=== PATIENT | male | born 1935 | race Caucasian/White ===

== ENCOUNTER 2023-04-20 20:24 | Inpatient (IN) ==
[2023-04-20] MEDS ORDERED: cefTRIAXone 1 gm/50 mL D5W 1 GM/50 ML BAG IV ONE (21:55)
[2023-04-21 00:17] LABS: ABS Basophils 0.1 10^3/uL (0.0-0.1); ABS Eosinophils 0.2 10^3/uL (0.0-0.5); ABS Lymphocytes 0.6 10^3/uL (1.0-4.8); ABS Monocytes 0.6 10^3/uL (0.0-1.1); ABS Neutrophils 8.5 10^3/uL (1.5-7.6); Eosinophil % 1.8 %; Hematocrit 27.7 % (38-53); Hemoglobin 9.2 g/dL (13.2-16.3); Lymphocyte % 5.9 %; Mean Corpuscular Hemoglobin 29.3 pg (27-33); Mean Corpuscular Hgb Conc 33.3 g/dL (31-36); Mean Corpuscular Volume 87.8 fL (80-97); Mean Platelet Volume 7.4 fL (7.5-11.2); Platelet Count 160 10^3/uL (150-450); Red Blood Count 3.16 10^6/uL (4.06-5.63); Red Cell Distribution Width 16.5 % (12-17)
[2023-04-21 00:18] LABS: Urine Appearance Cloudy; Urine Specific Gravity 1.017 (1.002-1.030)
[2023-04-21 00:19] LABS: Urine Color Red
[2023-04-21 00:33] LABS: Urine Bacteria Absent (Absent); Urine Red Blood Cell Absent (Absent); Urine White Blood Cell Absent (Absent)
[2023-04-21 00:34] LABS: Albumin 3.2 g/dL (3.2-5.2); Albumin/Globulin Ratio 1.3 (1-3); Calcium 8.7 mg/dL (8.6-10.3); Creatinine, Serum 1.7 mg/dL (0.67-1.17); Globulin 2.4 g/dL (2-4); Potassium 4.2 mmol/L (3.5-5.0); Total Bilirubin 0.8 mg/dL (0.2-1.0); Total Protein 5.6 g/dL (6.4-8.9); eGFR CKD-EPI 38.8 (>60)
[2023-04-21] MEDS ORDERED: hydrALAZINE 20 mg/ml 1 ML Vial IV IV SLOW PU PRN (04:09)
[2023-04-21] MEDS ORDERED: hydrALAZINE 20 mg/ml 1 ML Vial IV IV SLOW PU ONE (04:09)
[2023-04-21] MEDS ORDERED: Nitro 2% OINT (Nitroglycerin) 1 INCH/PAK TOPICAL ONE (04:10)
[2023-04-21] MEDS ORDERED: oxyCODONE/Acetamin 5/325 mg TAB PO ONE (04:44)
[2023-04-21] MEDS ORDERED: Lactated Ringers 1000 ml BAG 1,000 ML IV SCH (05:00)
[2023-04-21] MEDS ORDERED: Nitro 2% OINT (Nitroglycerin) 1 INCH/PAK ONE (05:55)
[2023-04-21] MEDS ORDERED: fentaNYL 100 mcg/2 ml 50 MCG/ML VIAL ONE (10:52)
[2023-04-21] MEDS ORDERED: Propofol 10 MG/ML 20 ML BTL ONE (10:52)
[2023-04-21] MEDS ORDERED: Rocuronium 50 mg VIAL 10 mg/ml 5 ml VIAL (50 mg) ONE (10:52)
[2023-04-21] MEDS ORDERED: Lidocaine 2% PF 5 ML VIAL ONE (10:52)
[2023-04-21] MEDS ORDERED: Dexamethasone IV 4 MG/ML VIAL 1 ml VIAL ONE (10:52)
[2023-04-21] MEDS ORDERED: Ondansetron 4 mg VIAL 2 MG/ML 2 ml VIAL ONE (10:52)
[2023-04-21] MEDS ORDERED: Glycopyrrolate IV 0.2 MG/ML 1 ML VIAL ONE (12:39)
[2023-04-21] MEDS ORDERED: KETAMINE HCL 10 MG/ML 20 ml VIAL (200 MG) ONE (12:46)
[2023-04-21] MEDS ORDERED: Furosemide 20 mg/2 ml IV VIAL ONE (13:28)
[2023-04-21] MEDS ORDERED: fentaNYL 100 mcg/2 ml 50 MCG/ML VIAL IV PRN (13:35)
[2023-04-21] MEDS ORDERED: Naloxone 0.4 mg VIAL 0.4 mg/ml 1 ml VIAL IV PRN (13:35)
[2023-04-21 16:06] LABS: Hematocrit 21.8 % (38-53); Hemoglobin 7.3 g/dL (13.2-16.3)
[2023-04-21] MEDS ORDERED: Lidocaine 2% JELLY 6 ML Topical TOPICAL PRN (20:03)
[2023-04-21] MEDS ORDERED: cefTRIAXone 1 gm/50 mL D5W 1 GM/50 ML BAG IV SCH (22:00)
[2023-04-21] MEDS: Lactated Ringers 1000 ml BAG 1,000 ML IV SCH (22:49)
[2023-04-21] MEDS: cefTRIAXone 1 gm/50 mL D5W 1 GM/50 ML BAG IV SCH (22:51)
[2023-04-21 23:46] LABS: Hematocrit 28.7 % (38-53); Hemoglobin 9.5 g/dL (13.2-16.3)
[2023-04-22] MEDS: Lactated Ringers 1000 ml BAG 1,000 ML IV SCH (05:30)
[2023-04-22 05:53] LABS: ABS Lymphocytes 0.4 10^3/uL (1.0-4.8); ABS Monocytes 0.4 10^3/uL (0.0-1.1); ABS Neutrophils 8.5 10^3/uL (1.5-7.6); Hematocrit 27.5 % (38-53); Hemoglobin 9.2 g/dL (13.2-16.3); Lymphocyte % 3.9 %; Mean Corpuscular Hemoglobin 29.2 pg (27-33); Mean Corpuscular Hgb Conc 33.7 g/dL (31-36); Mean Corpuscular Volume 86.6 fL (80-97); Mean Platelet Volume 7.4 fL (7.5-11.2); Platelet Count 153 10^3/uL (150-450); Red Blood Count 3.17 10^6/uL (4.06-5.63); Red Cell Distribution Width 16.2 % (12-17); White Blood Count 9.2 10^3/uL (3.6-10.2)
[2023-04-22 06:09] LABS: Calcium 8.4 mg/dL (8.6-10.3); Creatinine, Serum 1.47 mg/dL (0.67-1.17); Magnesium 1.9 mg/dL (1.9-2.7); Potassium 4.1 mmol/L (3.5-5.0); eGFR CKD-EPI 46.2 (>60)
[2023-04-22 12:33] LABS: Hematocrit 25.4 % (38-53); Hemoglobin 8.6 g/dL (13.2-16.3)
[2023-04-22 18:56] LABS: % Iron Saturation 9 % (15-55); .Transferrin 160 mg/dL (203-362); Iron < 20 ug/dL (50-212); Total Iron Binding Capacity 224 mcg/dL (250-450); Unsaturated Iron Binding 204 ug/dL
[2023-04-22 19:16] LABS: Ferritin 110.5 ng/mL (24-336)
[2023-04-22 19:20] LABS: Folate > 20.00 ng/mL (5.90-24.80)
[2023-04-22 19:21] LABS: Vitamin B12 772 pg/mL (180-914)
[2023-04-22] MEDS: cefTRIAXone 1 gm/50 mL D5W 1 GM/50 ML BAG IV SCH (21:27)
[2023-04-23 07:12] LABS: ABS Eosinophils 0.2 10^3/uL (0.0-0.5); ABS Lymphocytes 0.6 10^3/uL (1.0-4.8); ABS Monocytes 0.8 10^3/uL (0.0-1.1); ABS Neutrophils 5.6 10^3/uL (1.5-7.6); ABS Nucleated RBC 0.01 10^3/ul; Eosinophil % 2.7 %; Hemoglobin 8.3 g/dL (13.2-16.3); Lymphocyte % 8.4 %; Mean Corpuscular Hemoglobin 29.7 pg (27-33); Mean Corpuscular Hgb Conc 34.4 g/dL (31-36); Mean Corpuscular Volume 86.4 fL (80-97); Mean Platelet Volume 7.3 fL (7.5-11.2); Nucleated Red Blood Cells % 0.1 %/100WBC (0.0-0.8); Platelet Count 159 10^3/uL (150-450); Red Blood Count 2.78 10^6/uL (4.06-5.63); Red Cell Distribution Width 16.1 % (12-17); White Blood Count 7.3 10^3/uL (3.6-10.2)
[2023-04-23 07:27] LABS: Calcium 8.1 mg/dL (8.6-10.3); Creatinine, Serum 1.61 mg/dL (0.67-1.17); eGFR CKD-EPI 41.4 (>60)
[2023-04-23] MEDS: Polyethylene Glycol 3350 17 GM PACKET PO SCH (21:33)
[2023-04-23] MEDS: cefTRIAXone 1 gm/50 mL D5W 1 GM/50 ML BAG IV SCH (22:07)
[2023-04-24 05:41] LABS: Hemoglobin 8.8 g/dL (13.2-16.3); Mean Corpuscular Hemoglobin 29.5 pg (27-33); Mean Corpuscular Hgb Conc 33.7 g/dL (31-36); Mean Corpuscular Volume 87.5 fL (80-97); Mean Platelet Volume 7.1 fL (7.5-11.2); Platelet Count 192 10^3/uL (150-450); Red Blood Count 2.97 10^6/uL (4.06-5.63); Red Cell Distribution Width 16.2 % (12-17); White Blood Count 8.1 10^3/uL (3.6-10.2)
[2023-04-24 05:49] LABS: Calcium 8.5 mg/dL (8.6-10.3); Creatinine, Serum 1.65 mg/dL (0.67-1.17); eGFR CKD-EPI 40.2 (>60)
[2023-04-24] MEDS: Polyethylene Glycol 3350 17 GM PACKET PO SCH (08:33)
[2023-04-24 11:27] VITALS: BP 148/66
== END 2023-04-24 12:44 | disposition home or self-care (01) | DRG 666 ==
LOC: ED 20:24 → INTOOBSV 04-21 02:30 → SUATTDRO 04-21 02:30 → EDHOLD 04-21 02:30 → SSU 04-21 05:36 → SUATTDRO 04-23 15:41
PROVIDERS: ADMIT Internal Medicine; ATTEND Internal Medicine

== ENCOUNTER 2023-05-01 11:25 | Observation (INO) ==
[2023-05-01 14:58] LABS: ABS Eosinophils 0.2 10^3/uL (0.0-0.5); ABS Lymphocytes 0.4 10^3/uL (1.0-4.8); ABS Monocytes 0.5 10^3/uL (0.0-1.1); ABS Neutrophils 10.3 10^3/uL (1.5-7.6); ABS Nucleated RBC 0.01 10^3/ul; Eosinophil % 1.3 %; Hematocrit 26.6 % (38-53); Hemoglobin 8.7 g/dL (13.2-16.3); Lymphocyte % 3.7 %; Mean Corpuscular Hemoglobin 28.6 pg (27-33); Mean Corpuscular Hgb Conc 32.7 g/dL (31-36); Mean Corpuscular Volume 87.4 fL (80-97); Mean Platelet Volume 6.6 fL (7.5-11.2); Nucleated Red Blood Cells % 0.1 %/100WBC (0.0-0.8); Platelet Count 203 10^3/uL (150-450); Red Blood Count 3.05 10^6/uL (4.06-5.63); Red Cell Distribution Width 15.2 % (12-17); White Blood Count 11.4 10^3/uL (3.6-10.2)
[2023-05-01 15:18] LABS: Albumin 3.4 g/dL (3.2-5.2); Albumin/Globulin Ratio 1.2 (1-3); C Reactive Protein 119.94 mg/L (<8.01); Calcium 9.1 mg/dL (8.6-10.3); Creatinine, Serum 1.78 mg/dL (0.67-1.17); Globulin 2.8 g/dL (2-4); Potassium 4.3 mmol/L (3.5-5.0); Total Bilirubin 0.8 mg/dL (0.2-1.0); Total Protein 6.2 g/dL (6.4-8.9); eGFR CKD-EPI 36.7 (>60)
[2023-05-01] MEDS: Albuterol 2.5mg/3 ml (0.083%) NEB.SOLN INH ONE (16:03)
[2023-05-01] MEDS: Cefepime 2 GM in Dextrose 2 GM/50 ML BAG IV ONE (16:14)
[2023-05-01] MEDS: Azithromycin 500 mg/250 ml NS 500 MG/250 ML BAG IVPB ONE (17:39)
[2023-05-01] MEDS ORDERED: Cefepime 2 GM in Dextrose 2 GM/50 ML BAG IV SCH (19:00)
[2023-05-01] MEDS: Albuterol/Ipratropium NEB.SOL (2.5/0.5 MG) 3 ML NEB.SOLN INH SCH (21:21)
[2023-05-02] MEDS: Enoxaparin 30 MG/0.3 ML SYR SUBCUT SCH (00:13)
[2023-05-02] MEDS ORDERED: Albuterol/Ipratropium NEB.SOL (2.5/0.5 MG) 3 ML NEB.SOLN INH PRN (06:52)
[2023-05-02] MEDS: Cefepime 1 GM in Dextrose 1 GM/50 ML BAG IV SCH (07:34)
[2023-05-02 07:35] LABS: ABS Eosinophils 0.2 10^3/uL (0.0-0.5); ABS Lymphocytes 0.3 10^3/uL (1.0-4.8); ABS Monocytes 0.7 10^3/uL (0.0-1.1); ABS Neutrophils 8.4 10^3/uL (1.5-7.6); ABS Nucleated RBC 0.01 10^3/ul; Eosinophil % 1.8 %; Hematocrit 23.4 % (38-53); Hemoglobin 7.8 g/dL (13.2-16.3); Lymphocyte % 3.2 %; Mean Corpuscular Hemoglobin 29.2 pg (27-33); Mean Corpuscular Hgb Conc 33.2 g/dL (31-36); Mean Corpuscular Volume 87.8 fL (80-97); Mean Platelet Volume 6.7 fL (7.5-11.2); Nucleated Red Blood Cells % 0.1 %/100WBC (0.0-0.8); Platelet Count 166 10^3/uL (150-450); Red Blood Count 2.67 10^6/uL (4.06-5.63); Red Cell Distribution Width 15.3 % (12-17); White Blood Count 9.6 10^3/uL (3.6-10.2)
[2023-05-02 07:52] LABS: Calcium 8.4 mg/dL (8.6-10.3); Creatinine, Serum 2.18 mg/dL (0.67-1.17); Potassium 4.4 mmol/L (3.5-5.0); eGFR CKD-EPI 28.8 (>60)
[2023-05-02] MEDS: Aspirin EC 81 mg TAB.EC (enteric coated) PO SCH (09:11)
[2023-05-02] MEDS: Cholecalciferol (VIT D3) 1,000 unit TAB PO SCH (09:12)
[2023-05-02] MEDS: Lactated Ringers 1000 ml BAG 1,000 ML IV SCH (15:08)
[2023-05-02] MEDS: Polyethylene Glycol 3350 17 GM PACKET PO PRN (22:50)
[2023-05-03 05:36] LABS: ABS Eosinophils 0.3 10^3/uL (0.0-0.5); ABS Lymphocytes 0.7 10^3/uL (1.0-4.8); ABS Monocytes 0.5 10^3/uL (0.0-1.1); ABS Neutrophils 6.2 10^3/uL (1.5-7.6); ABS Nucleated RBC 0.01 10^3/ul; Eosinophil % 3.5 %; Hemoglobin 7.6 g/dL (13.2-16.3); Lymphocyte % 9.2 %; Mean Corpuscular Hemoglobin 29.4 pg (27-33); Mean Platelet Volume 7.1 fL (7.5-11.2); Nucleated Red Blood Cells % 0.1 %/100WBC (0.0-0.8); Platelet Count 153 10^3/uL (150-450); Red Blood Count 2.59 10^6/uL (4.06-5.63); Red Cell Distribution Width 15.6 % (12-17); White Blood Count 7.7 10^3/uL (3.6-10.2)
[2023-05-03 06:01] LABS: Calcium 8.3 mg/dL (8.6-10.3); Creatinine, Serum 2.03 mg/dL (0.67-1.17); eGFR CKD-EPI 31.3 (>60)
[2023-05-03 09:45] VITALS: BP 142/61
== END 2023-05-03 14:12 | disposition home or self-care (01) ==
LOC: EDHOLD 11:25 → ED 11:25 → MEDTELE 05-02 10:31
PROVIDERS: ADMIT Hospitalist; ATTEND Hospitalist

== ENCOUNTER 2023-05-23 16:52 | Inpatient (IN) ==
[2023-05-23] MEDS ORDERED: Vancomycin per Pharmacy 1 EA NOTE FOLLOW UP SCH (18:00)
[2023-05-23 18:30] LABS: ABS Lymphocytes 0.3 10^3/uL (1.0-4.8); ABS Monocytes 0.6 10^3/uL (0.0-1.1); ABS Neutrophils 8.7 10^3/uL (1.5-7.6); Hematocrit 33.1 % (38-53); Hemoglobin 10.6 g/dL (13.2-16.3); Lymphocyte % 3.4 %; Mean Corpuscular Hemoglobin 29.1 pg (27-33); Mean Corpuscular Hgb Conc 32.1 g/dL (31-36); Mean Corpuscular Volume 90.8 fL (80-97); Mean Platelet Volume 8.2 fL (7.5-11.2); Platelet Count 204 10^3/uL (150-450); Red Blood Count 3.65 10^6/uL (4.06-5.63); White Blood Count 9.6 10^3/uL (3.6-10.2)
[2023-05-23] MEDS: NORMOSOL R IV ONE (18:45)
[2023-05-23] MEDS: Norepinephrine 4 MG/250mL D5W 4,000 MCG/250 ML BAG IV SCH (18:46)
[2023-05-23] MEDS: Vancomycin 1,000 MG in NS 0.9% 250 ml 250 ML IVPB ONE (18:47)
[2023-05-23] MEDS: Cefepime 2 GM in Dextrose 2 GM/50 ML BAG IV ONE (18:48)
[2023-05-23 19:03] LABS: Activated Partial Thrombo Time 39.7 seconds (26.0-38.0); INR 0.96 (0.83-1.13)
[2023-05-23] MEDS: Ondansetron 4 mg VIAL 2 MG/ML 2 ml VIAL IV ONE (19:03)
[2023-05-23 19:11] LABS: Urine Appearance Extra Turbid; Urine Bilirubin Negative (Negative); Urine Blood 2+ (Negative); Urine Color Yellow; Urine Glucose Negative (Negative); Urine Ketones Negative (Negative); Urine Nitrite Negative (Negative); Urine Protein 2+ (>=100 mg/dL) (Negative); Urine Specific Gravity 1.014 (1.002-1.030); Urine Urobilinogen Negative (Negative); Urine pH 6.5 (5.0-8.0)
[2023-05-23 19:20] LABS: Urine Bacteria 3+ /HPF (Absent); Urine Red Blood Cell 3+(>10/hpf) /HPF (0-Trace); Urine White Blood Cell 3+(>20/hpf) /HPF (0-Trace)
[2023-05-23 19:59] LABS: PCO2 Arterial 43 mmHg (35-45); PO2 Arterial 94 mmHg (80-100)
[2023-05-23 20:15] LABS: Albumin 3.8 g/dL (3.2-5.2); Albumin/Globulin Ratio 1.4 (1-3); Calcium 9.8 mg/dL (8.6-10.3); Creatinine, Serum 3.79 mg/dL (0.67-1.17); Globulin 2.7 g/dL (2-4); Potassium 4.3 mmol/L (3.5-5.0); Total Bilirubin 0.8 mg/dL (0.2-1.0); Total Protein 6.5 g/dL (6.4-8.9); eGFR CKD-EPI 14.8 (>60)
[2023-05-23 20:56] LABS: C Reactive Protein 101.82 mg/L (<8.01)
[2023-05-23] MEDS: NORMOSOL-R pH 7.4 1000 mL BAG 1,000 ML IV SCH (22:22)
[2023-05-24] MEDS: metroNIDAZOLE IV 500 MG/100ML 500 MG/100 ML BAG IVPB ONE (01:11)
[2023-05-24] MEDS: Rocuronium 50 mg VIAL 10 mg/ml 5 ml VIAL (50 mg) IV ONE ×2 (03:06→03:16)
[2023-05-24] MEDS: Lactated Ringers 1000 ml BAG 1,000 ML IV SCH ×2 (03:21→09:53)
[2023-05-24 05:21] LABS: ABS Lymphocytes 0.4 10^3/uL (1.0-4.8); ABS Monocytes 0.5 10^3/uL (0.0-1.1); ABS Neutrophils 7.2 10^3/uL (1.5-7.6); ABS Nucleated RBC 0.01 10^3/ul; Calcium 7.6 mg/dL (8.6-10.3); Creatinine, Serum 3.48 mg/dL (0.67-1.17); Eosinophil % 0.3 %; Hematocrit 24.6 % (38-53); Lymphocyte % 4.8 %; Mean Corpuscular Hemoglobin 29.4 pg (27-33); Mean Corpuscular Hgb Conc 32.7 g/dL (31-36); Mean Corpuscular Volume 89.7 fL (80-97); Mean Platelet Volume 7.5 fL (7.5-11.2); Nucleated Red Blood Cells % 0.1 %/100WBC (0.0-0.8); Platelet Count 186 10^3/uL (150-450); Potassium 5.1 mmol/L (3.5-5.0); Red Blood Count 2.74 10^6/uL (4.06-5.63); Red Cell Distribution Width 18.8 % (12-17); Vancomycin Random 13.7 mcg/mL; White Blood Count 8.2 10^3/uL (3.6-10.2); eGFR CKD-EPI 16.4 (>60)
[2023-05-24] MEDS: Heparin 5000 UNITS/ML 1 mL VIAL SUBCUT SCH (08:10)
[2023-05-24] MEDS: Vancomycin Random Level NOTE FOLLOW UP ONE (08:10)
[2023-05-24] MEDS: Cefepime 1 GM in Dextrose 1 GM/50 ML BAG IV SCH (17:30)
[2023-05-25] MEDS: Azithromycin 500 mg/250 ml NS 500 MG/250 ML BAG IVPB ONE (03:32)
[2023-05-25 04:30] LABS: ABS Eosinophils 0.1 10^3/uL (0.0-0.5); ABS Lymphocytes 0.4 10^3/uL (1.0-4.8); ABS Monocytes 0.6 10^3/uL (0.0-1.1); ABS Neutrophils 6.7 10^3/uL (1.5-7.6); ABS Nucleated RBC 0.01 10^3/ul; Eosinophil % 1.7 %; Hematocrit 20.6 % (38-53); Hemoglobin 6.8 g/dL (13.2-16.3); Lymphocyte % 5.5 %; Mean Corpuscular Hemoglobin 29.9 pg (27-33); Mean Corpuscular Hgb Conc 33.1 g/dL (31-36); Mean Corpuscular Volume 90.4 fL (80-97); Mean Platelet Volume 7.4 fL (7.5-11.2); Nucleated Red Blood Cells % 0.1 %/100WBC (0.0-0.8); Platelet Count 124 10^3/uL (150-450); Red Blood Count 2.28 10^6/uL (4.06-5.63); Red Cell Distribution Width 19.4 % (12-17); White Blood Count 7.8 10^3/uL (3.6-10.2)
[2023-05-25 05:08] LABS: Calcium 7.5 mg/dL (8.6-10.3); Creatinine, Serum 3.83 mg/dL (0.67-1.17); Magnesium 1.9 mg/dL (1.9-2.7); Potassium 4.4 mmol/L (3.5-5.0); eGFR CKD-EPI 14.6 (>60)
[2023-05-25] MEDS: Aspirin EC 81 mg TAB.EC (enteric coated) PO SCH (07:59)
[2023-05-25 10:29] LABS: Hematocrit 25.9 % (38-53); Hemoglobin 8.6 g/dL (13.2-16.3)
[2023-05-25 16:25] LABS: Calcium 6.8 mg/dL (8.6-10.3); Creatinine, Serum 3.2 mg/dL (0.67-1.17); Potassium 3.8 mmol/L (3.5-5.0); eGFR CKD-EPI 18.2 (>60)
[2023-05-26 04:11] LABS: ABS Eosinophils 0.4 10^3/uL (0.0-0.5); ABS Lymphocytes 0.4 10^3/uL (1.0-4.8); ABS Monocytes 0.6 10^3/uL (0.0-1.1); ABS Neutrophils 7.7 10^3/uL (1.5-7.6); Eosinophil % 4.3 %; Hematocrit 26.6 % (38-53); Hemoglobin 8.8 g/dL (13.2-16.3); Lymphocyte % 4.7 %; Mean Corpuscular Hemoglobin 29.5 pg (27-33); Mean Corpuscular Hgb Conc 33.2 g/dL (31-36); Mean Corpuscular Volume 88.8 fL (80-97); Mean Platelet Volume 7.4 fL (7.5-11.2); Platelet Count 136 10^3/uL (150-450); Red Blood Count 2.99 10^6/uL (4.06-5.63); Red Cell Distribution Width 18.6 % (12-17); White Blood Count 9.1 10^3/uL (3.6-10.2)
[2023-05-26 06:13] LABS: Calcium 7.7 mg/dL (8.6-10.3); Creatinine, Serum 3.49 mg/dL (0.67-1.17); Magnesium 1.9 mg/dL (1.9-2.7); Potassium 4.1 mmol/L (3.5-5.0); eGFR CKD-EPI 16.4 (>60)
[2023-05-27 06:14] LABS: Hematocrit 26.7 % (38-53); Hemoglobin 8.9 g/dL (13.2-16.3); Mean Corpuscular Hemoglobin 29.4 pg (27-33); Mean Corpuscular Hgb Conc 33.2 g/dL (31-36); Mean Corpuscular Volume 88.6 fL (80-97); Mean Platelet Volume 7.4 fL (7.5-11.2); Platelet Count 136 10^3/uL (150-450); Red Blood Count 3.01 10^6/uL (4.06-5.63); Red Cell Distribution Width 18.2 % (12-17)
[2023-05-27 06:29] LABS: Calcium 8.1 mg/dL (8.6-10.3); Creatinine, Serum 2.93 mg/dL (0.67-1.17); Magnesium 1.9 mg/dL (1.9-2.7); Potassium 4.1 mmol/L (3.5-5.0); eGFR CKD-EPI 20.2 (>60)
[2023-05-27 09:02] LABS: ABS Eosinophils 0.4 10^3/uL (0.0-0.5); ABS Lymphocytes 0.5 10^3/uL (1.0-4.8); ABS Monocytes 0.9 10^3/uL (0.0-1.1); ABS Neutrophils 7.3 10^3/uL (1.5-7.6); Anisocytosis 1+; Eosinophil % 4.4 %; Lymphocyte % 5.3 %; Polychromasia 1+
[2023-05-27] MEDS: Azithromycin 500 mg/250 ml NS 500 MG/250 ML BAG IVPB SCH (09:56)
[2023-05-27] MEDS: D5W 1000 ml BAG 1,000 ML IV SCH (12:51)
[2023-05-28 07:34] LABS: Hematocrit 25.4 % (38-53); Hemoglobin 8.2 g/dL (13.2-16.3); Mean Corpuscular Hemoglobin 28.9 pg (27-33); Mean Corpuscular Hgb Conc 32.4 g/dL (31-36); Mean Corpuscular Volume 89.2 fL (80-97); Mean Platelet Volume 7.5 fL (7.5-11.2); Platelet Count 138 10^3/uL (150-450); Red Blood Count 2.84 10^6/uL (4.06-5.63); Red Cell Distribution Width 17.9 % (12-17); White Blood Count 8.2 10^3/uL (3.6-10.2)
[2023-05-28 08:18] LABS: Calcium 7.9 mg/dL (8.6-10.3); Creatinine, Serum 2.58 mg/dL (0.67-1.17); Magnesium 1.7 mg/dL (1.9-2.7); Phosphorus 2.3 mg/dL (2.5-5.0); Potassium 4.1 mmol/L (3.5-5.0); eGFR CKD-EPI 23.5 (>60)
[2023-05-28 08:42] LABS: ABS Eosinophils 0.3 10^3/uL (0.0-0.5); ABS Lymphocytes 0.5 10^3/uL (1.0-4.8); ABS Neutrophils 6.5 10^3/uL (1.5-7.6); ABS Nucleated RBC 0.01 10^3/ul; Eosinophil % 3.7 %; Lymphocyte % 5.6 %; Nucleated Red Blood Cells % 0.1 %/100WBC (0.0-0.8)
[2023-05-28] MEDS ORDERED: Albuterol HFA INHALER 8 gm MDI INH PRN (09:41)
[2023-05-28] MEDS: Magnesium Sulfate 2 gm BAG 2 GM/50 ML BAG IVPB ONE (11:30)
[2023-05-28] MEDS: Potassium Phosphate IV 5 MMOL in NS 0.9% 250 ml 250 ML IVPB ONE (20:19)
[2023-05-29] MEDS: Albuterol/Ipratropium NEB.SOL (2.5/0.5 MG) 3 ML NEB.SOLN INH SCH (01:06)
[2023-05-29 05:00] LABS: Calcium 7.8 mg/dL (8.6-10.3); Creatinine, Serum 2.3 mg/dL (0.67-1.17); Magnesium 2.1 mg/dL (1.9-2.7); Phosphorus 2.6 mg/dL (2.5-5.0); Potassium 4.2 mmol/L (3.5-5.0)
[2023-05-29 05:21] LABS: Hematocrit 26.6 % (38-53); Hemoglobin 8.6 g/dL (13.2-16.3); Mean Corpuscular Hemoglobin 28.5 pg (27-33); Mean Corpuscular Hgb Conc 32.3 g/dL (31-36); Mean Corpuscular Volume 88.3 fL (80-97); Mean Platelet Volume 7.3 fL (7.5-11.2); Platelet Count 149 10^3/uL (150-450); Red Blood Count 3.01 10^6/uL (4.06-5.63); Red Cell Distribution Width 17.5 % (12-17); White Blood Count 7.8 10^3/uL (3.6-10.2)
[2023-05-29 06:10] LABS: High Sensitivity Troponin 1 Hr 12 pg/mL (<20)
[2023-05-29] MEDS ORDERED: hydrALAZINE 20 mg/ml 1 ML Vial IV IV SLOW PU PRN (18:13)
[2023-05-30 09:55] LABS: Calcium 8.6 mg/dL (8.6-10.3); Creatinine, Serum 2.13 mg/dL (0.67-1.17); Potassium 4.2 mmol/L (3.5-5.0); eGFR CKD-EPI 29.6 (>60)
[2023-05-30 10:22] VITALS: BP 168/59
== END 2023-05-30 12:20 | disposition home or self-care (01) | DRG 871 ==
LOC: ED 16:52 → SUATTDRO 22:20 → EDHOLD 22:20 → ICU 05-24 03:25 → MED 05-26 17:05
PROVIDERS: ADMIT Internal Medicine; ATTEND Internal Medicine